=== PATIENT | female | born 1955 | race Caucasian/White ===

== ENCOUNTER 2018-08-19 10:32 | Outpatient (CLI) | payer BC ==
[2018-08-19 11:17] LABS: BASOPHILS % (AUTO) 0.8 % (0.0-2.0); EOSINOPHILS % (AUTO) 0.9 % (0.0-6.0); HEMATOCRIT 41 % (33-45); HEMOGLOBIN 13.4 g/dL (11.5-14.8); LYMPHOCYTES # (AUTO) 1.4 /CMM (0.8-4.8); LYMPHOCYTES % (AUTO) 27.2 % (20.0-44.0); MEAN CORPUSCULAR HGB CONC 33 g/dl (31.0-36.0); MEAN CORPUSCULAR VOLUME 91 fL (82-100); MONOCYTES # (AUTO) 0.3 /CMM (0.1-1.30); MONOCYTES % (AUTO) 5.9 % (2.0-12.0); NEUTROPHILS # (AUTO) 3.4 /CMM (1.8-8.9); NEUTROPHILS % (AUTO) 65.2 % (43.0-81.0); PLATELET COUNT (AUTO) 213 /CMM (150-450); RED BLOOD CELL COUNT(AUTO) 4.44 MIL/uL (4.0-5.2); WHITE BLOOD COUNT (AUTO) 5.2 K/uL (4.3-11.0)
[2018-08-19 11:26] LABS: APPEARANCE,URINE CLEAR (CLEAR); BILIRUBIN,URINE NEGATIVE (NEGATIVE); BLOOD, URINE NEGATIVE Ery/uL (NEGATIVE); COLOR,URINE YELLOW (YELLOW); KETONES,URINE TRACE (NEGATIVE); LEUKOCYTE ESTERASE ,URINE NEGATIVE (NEGATIVE); NITRITE, URINE NEGATIVE (NEGATIVE); PROTEIN,URINE NEGATIVE (NEGATIVE); UGLUCOSE NEGATIVE (NEGATIVE); UROBILINOGEN,URINE 0.2 EU/dL (0.2)
[2018-08-19 11:31] LABS: ALBUMIN 4.3 g/dL (3.4-5.0); BILIRUBIN,TOTAL 0.6 mg/dL (0.2-1.0); CALCIUM, SERUM 9.1 mg/dL (8.5-10.1); CREATININE 0.7 mg/dL (0.6-1.3); POTASSIUM 3.6 mmol/L (3.5-5.1); TOTAL PROTEIN, SERUM 7.7 g/dL (6.4-8.2)
[2018-08-19 11:41] LABS: THYROID STIMULATING HORMONE 0.791 uIU/mL (0.358-3.74)
[2018-08-19 13:45] LABS: BACTERIA,URINE None seen /HPF (None Seen); RBC,URINE NONE SEEN /HPF (0-2); SQUAMOUS EPITHELIAL CELL,UR Few /HPF (None Seen); WBC,URINE 0-2 /HPF (0-3)
[2018-08-20 08:10] LABS: T3, FREE 2.9 pg/mL (2.0-4.4)
[2018-08-20 11:17] LABS: *FOLIC ACID > 20.0 ng/mL (>3.0)
== END 2018-08-19 23:59 | disposition home or self-care (01) ==
LOC: LAB 10:32
PROVIDERS: ATTEND Legal Medicine
DX: Z00.00 Encounter for general adult medical examination without abnormal findings (principal); J32.9 Chronic sinusitis, unspecified; J34.2 Deviated nasal septum; E78.00 Pure hypercholesterolemia, unspecified; I10 Essential (primary) hypertension; E03.9 Hypothyroidism, unspecified; D64.9 Anemia, unspecified; J30.9 Allergic rhinitis, unspecified; E55.9 Vitamin D deficiency, unspecified
CPT/HCPCS: 70486-TC; 80053-TC; 80061-TC; 81000-TC; 82306; 82728-TC; 82785; 83540-TC; 84439-TC; 84443-TC; 84481; 85025-TC

== ENCOUNTER 2018-10-08 08:20 | Emergency (ER) | payer BC, OTHER ==
[~2018-10-08] VITALS: Ht 162.6 cm; Wt 56.7 kg
[2018-10-08 08:25] VITALS: BP 137/76
== END 2018-10-08 09:54 | disposition home or self-care (01) ==
LOC: ER 08:20
DX: S50.12XA Contusion of left forearm, initial encounter (principal); S50.02XA Contusion of left elbow, initial encounter; S09.8XXA Other specified injuries of head, initial encounter; E03.9 Hypothyroidism, unspecified; W01.198A Fall on same level from slipping, tripping and stumbling with subsequent striking against other object, initial encounter; Y93.89 Activity, other specified; Y92.89 Other specified places as the place of occurrence of the external cause; Y99.8 Other external cause status
CPT/HCPCS: 99281; A4606; Z7502

== ENCOUNTER 2019-03-24 08:28 | Emergency (ER) | payer BC, OTHER ==
[~2019-03-24] VITALS: Ht 162.6 cm; Wt 56.7 kg
--- NOTE | 2019-03-24 08:51 | NUR ---
DR LARKIN AT BEDSIDE FOR EVAL.
--- NOTE | 2019-03-24 09:06 | NUR ---
ROAD ENGINEER AT BEDSIDE FOR BLOOD DRAW.
[2019-03-24 09:11] LABS: BASOPHILS # (AUTO) 0.1 /CMM (0.0-0.2); BASOPHILS % (AUTO) 0.7 % (0.0-2.0); EOSINOPHILS % (AUTO) 0.3 % (0.0-6.0); HEMATOCRIT 42 % (33-45); HEMOGLOBIN 14.1 g/dL (11.5-14.8); LYMPHOCYTES # (AUTO) 1.1 /CMM (0.8-4.8); MEAN CORPUSCULAR HGB CONC 34 g/dl (31.0-36.0); MEAN CORPUSCULAR VOLUME 92 fL (82-100); MONOCYTES # (AUTO) 0.5 /CMM (0.1-1.30); MONOCYTES % (AUTO) 5.9 % (2.0-12.0); NEUTROPHILS # (AUTO) 6.5 /CMM (1.8-8.9); NEUTROPHILS % (AUTO) 79.1 % (43.0-81.0); PLATELET COUNT (AUTO) 218 /CMM (150-450); RED BLOOD CELL COUNT(AUTO) 4.54 MIL/uL (4.0-5.2); WHITE BLOOD COUNT (AUTO) 8.2 K/uL (4.3-11.0)
[2019-03-24 09:13] LABS: APPEARANCE,URINE Clear (CLEAR); BILIRUBIN,URINE Negative (NEGATIVE); BLOOD, URINE Negative Ery/uL (NEGATIVE); COLOR,URINE Yellow (YELLOW); KETONES,URINE Negative (NEGATIVE); LEUKOCYTE ESTERASE ,URINE Negative (NEGATIVE); NITRITE, URINE Negative (NEGATIVE); PH,URINE 7.5 (5.0-8.0); PROTEIN,URINE Negative (NEGATIVE); UGLUCOSE Negative (NEGATIVE); UROBILINOGEN,URINE 0.2 EU/dL (0.2)
[2019-03-24 09:18] LABS: CALCIUM, SERUM 9.4 mg/dL (8.5-10.1); CREATININE 0.8 mg/dL (0.6-1.3); POTASSIUM 3.9 mmol/L (3.5-5.1)
[2019-03-24 09:23] LABS: ALBUMIN 4.6 g/dL (3.4-5.0); BILIRUBIN,DIRECT 0.2 mg/dL (0.0-0.2); BILIRUBIN,TOTAL 0.6 mg/dL (0.2-1.0)
--- NOTE | 2019-03-24 09:26 | NUR ---
PT TO RADIOLOGY FOR HEAD CT SCAN VIA [facility].
--- NOTE | 2019-03-24 10:36 | NUR ---
Patient discharged to home in stable condition. Written and verbal after care instructions given. Patient verbalizes understanding of instruction.
[2019-03-24 10:38] VITALS: BP 152/84
== END 2019-03-24 10:38 | disposition home or self-care (01) ==
LOC: ER 08:32
DX: J32.9 Chronic sinusitis, unspecified (principal); R40.4 Transient alteration of awareness
CPT/HCPCS: 36415; 70450-TC; 71045-TC; 80048-TC; 80076-TC; 81000-TC; 85025-TC

== ENCOUNTER 2019-03-26 10:53 | Outpatient (CLI) | payer BC ==
[2019-03-26 11:53] LABS: BASOPHILS % (AUTO) 0.8 % (0.0-2.0); EOSINOPHILS % (AUTO) 0.5 % (0.0-6.0); HEMATOCRIT 40 % (33-45); HEMOGLOBIN 13.2 g/dL (11.5-14.8); LYMPHOCYTES # (AUTO) 1.4 /CMM (0.8-4.8); LYMPHOCYTES % (AUTO) 25.5 % (20.0-44.0); MEAN CORPUSCULAR HGB CONC 33 g/dl (31.0-36.0); MEAN CORPUSCULAR VOLUME 92 fL (82-100); MONOCYTES # (AUTO) 0.3 /CMM (0.1-1.30); MONOCYTES % (AUTO) 5.6 % (2.0-12.0); NEUTROPHILS # (AUTO) 3.8 /CMM (1.8-8.9); NEUTROPHILS % (AUTO) 67.6 % (43.0-81.0); PLATELET COUNT (AUTO) 213 /CMM (150-450); RED BLOOD CELL COUNT(AUTO) 4.33 MIL/uL (4.0-5.2); WHITE BLOOD COUNT (AUTO) 5.6 K/uL (4.3-11.0)
[2019-03-26 12:30] LABS: CREATINE KINASE, TOTAL 95 U/L (26-192)
[2019-03-26 12:38] LABS: C-REACTIVE PROTEIN < 0.2 mg/dL (0.0-0.9)
[2019-03-26 12:42] LABS: ALANINE AMINOTRANSFERASE 20 U/L (12-78); ALBUMIN 4.4 g/dL (3.4-5.0); ALKALINE PHOSPHATASE 50 U/L (46-116); ASPARTATE AMINOTRANSFERASE 19 U/L (15-37); BILIRUBIN,TOTAL 0.6 mg/dL (0.2-1.0); CALCIUM, SERUM 8.5 mg/dL (8.5-10.1); CARBON DIOXIDE 26 mmol/L (21-32); CHLORIDE 104 mmol/L (98-107); CREATININE 0.8 mg/dL (0.6-1.3); GLUCOSE 103 mg/dL (74-106); POTASSIUM 3.6 mmol/L (3.5-5.1); SODIUM SERUM 139 mmol/L (136-145); TOTAL PROTEIN, SERUM 7.7 g/dL (6.4-8.2); UREA NITROGEN, BLOOD 10 mg/dL (7-18)
[2019-03-27 17:09] LABS: *ANA ANTI-CENTROMERE B AB <0.2 AI (0.0-0.9); *ANA ANTI-DNA(DS) AB, QN <1 IU/mL (0-9); *ANA ANTI-JO-1 <0.2 AI (0.0-0.9); *ANA ANTICHROMATIN ANTIBODY <0.2 AI (0.0-0.9); *ANA RNP ANTIBODIES <0.2 AI (0.0-0.9); *ANA SJOGREN'S ANTI-SS-A <0.2 AI (0.0-0.9); *ANA SJOGREN'S ANTI-SS-B <0.2 AI (0.0-0.9); *ANAANTI-SCLERODERMA-70 AB <0.2 AI (0.0-0.9); *ANASMITH AB <0.2 AI (0.0-0.9)
[2019-03-28 18:06] LABS: CCP IgG/IgA AB <1 units (0-19)
[2019-03-29 10:07] LABS: ALDOLASE 3.6 U/L (3.3-10.3)
== END 2019-03-26 23:59 | disposition home or self-care (01) ==
LOC: LAB 10:53
PROVIDERS: ATTEND Legal Medicine
DX: R53.1 Weakness (principal); R51 Headache
CPT/HCPCS: 36415; 80053-TC; 82085; 82550-TC; 85025-TC; 85652-TC; 86140-TC; 86200; 86225; 86235; 86431-TC

== ENCOUNTER 2019-03-31 09:14 | Outpatient (CLI) | payer BC ==
[2019-03-31] MEDS ORDERED: GADOTERIDOL 279.3 MG/ML VIAL IV ONE (09:15)
== END 2019-03-31 23:59 | disposition home or self-care (01) ==
LOC: MRI 09:14
PROVIDERS: ATTEND Legal Medicine
DX: M50.221 Other cervical disc displacement at C4-C5 level (principal); M48.02 Spinal stenosis, cervical region; J34.1 Cyst and mucocele of nose and nasal sinus; J32.9 Chronic sinusitis, unspecified; H69.90 Unspecified Eustachian tube disorder, unspecified ear
CPT/HCPCS: 70542; 70553; A9579; 72156-TC

== ENCOUNTER 2019-08-20 07:44 | Outpatient (CLI) | payer BC | END 2019-08-20 23:59 | disposition home or self-care (01) | LOC: LAB 07:44 | DX: M26.12 Other jaw asymmetry (principal) | CPT/HCPCS: 36415; 85652-TC ==

== ENCOUNTER 2019-08-26 06:50 | Emergency (ER) | payer BC, OTHER ==
[~2019-08-26] VITALS: Ht 162.6 cm; Wt 56.7 kg
--- NOTE | 2019-08-26 07:15 | NUR ---
C/O SINUS PRESSURE, COUGH, CONGESTION, RUNNY NOSE, HEADACHE, SOB, SORETHROAT AND R EARACHE. ON ALBUTEROL AND AUGMENTIN. PATIENT A/OX4, BREATHING EVEN AND UNLABORED, NO SOB NOTED. NEEDS ATTENDED.
[2019-08-26] MEDS ORDERED: KETOROLAC TROMETHAMINE INJ 30 MG/ML VIAL ONE (07:29)
[2019-08-26] MEDS ORDERED: diphenhydrAMINE HCL 50 MG/ML VIAL ONE (07:29)
[2019-08-26] MEDS ORDERED: DEXAMETHASONE SOD PHOSPHATE 10 MG/ML VIAL ONE (07:29)
[2019-08-26] MEDS ORDERED: METOCLOPRAMIDE HCL 10 MG/2 ML VIAL ONE (07:29)
[2019-08-26] MEDS ORDERED: DEXAMETHASONE SOD PHOSPHATE 10 MG/ML VIAL IV ONE (07:30)
[2019-08-26] MEDS ORDERED: IV NS 0.9% 1,000 ML BAG IV ONE (07:30)
[2019-08-26] MEDS ORDERED: diphenhydrAMINE HCL 50 MG/ML VIAL IV ONE (07:30)
[2019-08-26] MEDS ORDERED: KETOROLAC TROMETHAMINE INJ 30 MG/ML VIAL IV ONE (07:30)
[2019-08-26] MEDS ORDERED: METOCLOPRAMIDE HCL 10 MG/2 ML VIAL IV ONE (07:30)
[2019-08-26 07:37] LABS: BASOPHILS % (AUTO) 0.8 % (0.0-2.0); EOSINOPHILS % (AUTO) 1.4 % (0.0-6.0); HEMATOCRIT 39 % (33-45); HEMOGLOBIN 13.3 g/dL (11.5-14.8); LYMPHOCYTES # (AUTO) 0.5 /CMM (0.8-4.8); LYMPHOCYTES % (AUTO) 10.6 % (20.0-44.0); MEAN CORPUSCULAR HGB CONC 34 g/dl (31.0-36.0); MEAN CORPUSCULAR VOLUME 91 fL (82-100); MONOCYTES # (AUTO) 0.6 /CMM (0.1-1.30); MONOCYTES % (AUTO) 12.1 % (2.0-12.0); NEUTROPHILS # (AUTO) 3.5 /CMM (1.8-8.9); NEUTROPHILS % (AUTO) 75.1 % (43.0-81.0); PLATELET COUNT (AUTO) 158 /CMM (150-450); RED BLOOD CELL COUNT(AUTO) 4.34 MIL/uL (4.0-5.2); WHITE BLOOD COUNT (AUTO) 4.6 K/uL (4.3-11.0)
[2019-08-26 08:04] LABS: CALCIUM, SERUM 8.7 mg/dL (8.5-10.1); CREATININE 0.8 mg/dL (0.6-1.3); POTASSIUM 3.7 mmol/L (3.5-5.1)
--- NOTE | 2019-08-26 09:18 | NUR ---
Patient stated she feels better. Ambulatory with steady gait. IV removed. Catheter intact and site benign. Pressure and 4x4 applied to site. No bleeding noted. Patient discharged to home in stable condition. Written and verbal after care instructions given. Patient verbalizes understanding of instruction.
[2019-08-26 09:19] VITALS: BP 136/90
== END 2019-08-26 09:19 | disposition home or self-care (01) ==
LOC: ER 06:50
DX: R51 Headache (principal); R05 Cough; E03.9 Hypothyroidism, unspecified
CPT/HCPCS: 36415; 80048; 85025; 87804 ×2; 96374; 96375; 99283; J1100; J1200; J1885; J2765; J7030

== ENCOUNTER 2019-09-01 07:37 | Outpatient (CLI) | payer BC ==
[2019-09-01 08:56] LABS: BASOPHILS % (AUTO) 0.7 % (0.0-2.0); EOSINOPHILS % (AUTO) 1.4 % (0.0-6.0); HEMATOCRIT 40 % (33-45); HEMOGLOBIN 13.5 g/dL (11.5-14.8); LYMPHOCYTES # (AUTO) 1.9 /CMM (0.8-4.8); LYMPHOCYTES % (AUTO) 27.6 % (20.0-44.0); MEAN CORPUSCULAR HGB CONC 33 g/dl (31.0-36.0); MEAN CORPUSCULAR VOLUME 91 fL (82-100); MONOCYTES # (AUTO) 0.5 /CMM (0.1-1.30); MONOCYTES % (AUTO) 7.8 % (2.0-12.0); NEUTROPHILS # (AUTO) 4.3 /CMM (1.8-8.9); NEUTROPHILS % (AUTO) 62.5 % (43.0-81.0); PLATELET COUNT (AUTO) 257 /CMM (150-450); RED BLOOD CELL COUNT(AUTO) 4.45 MIL/uL (4.0-5.2); WHITE BLOOD COUNT (AUTO) 6.8 K/uL (4.3-11.0)
[2019-09-01 09:19] LABS: C-REACTIVE PROTEIN < 0.2 mg/dL (0.0-0.9)
[2019-09-01 09:23] LABS: ALANINE AMINOTRANSFERASE 32 U/L (12-78); ALBUMIN 4.1 g/dL (3.4-5.0); ALKALINE PHOSPHATASE 55 U/L (46-116); ASPARTATE AMINOTRANSFERASE 23 U/L (15-37); BILIRUBIN,TOTAL 0.5 mg/dL (0.2-1.0); CALCIUM, SERUM 8.9 mg/dL (8.5-10.1); CARBON DIOXIDE 27 mmol/L (21-32); CHLORIDE 104 mmol/L (98-107); CREATININE 0.9 mg/dL (0.6-1.3); GLUCOSE 101 mg/dL (74-106); POTASSIUM 3.5 mmol/L (3.5-5.1); SODIUM SERUM 142 mmol/L (136-145); TOTAL PROTEIN, SERUM 7.6 g/dL (6.4-8.2); UREA NITROGEN, BLOOD 12 mg/dL (7-18)
[2019-09-04 15:06] LABS: IMMUNOGLOBULIN E,TOTAL <2 IU/mL (6-495)
== END 2019-09-01 23:59 | disposition home or self-care (01) ==
LOC: LAB 07:37
PROVIDERS: ATTEND Legal Medicine
DX: D64.9 Anemia, unspecified (principal)
CPT/HCPCS: 80053-TC; 85025-TC; 85652-TC; 86140-TC

== ENCOUNTER 2019-09-03 09:18 | Outpatient (CLI) | payer BC, OTHER ==
[2019-09-03] MEDS ORDERED: IV NS 0.9% 250 ML IV ONE (10:19)
[2019-09-03] MEDS ORDERED: IOHEXOL-300 100 ML VIAL IV ONE (10:19)
[2019-09-03] MEDS ORDERED: CT SWABBABLE VALVE TRANS SET 1 EA INFUS.SET MC ONE (10:19)
== END 2019-09-03 23:59 | disposition home or self-care (01) ==
LOC: CT 09:18
PROVIDERS: ATTEND Legal Medicine
DX: J32.9 Chronic sinusitis, unspecified (principal); J33.8 Other polyp of sinus; J32.2 Chronic ethmoidal sinusitis; R91.1 Solitary pulmonary nodule; J92.9 Pleural plaque without asbestos; J94.8 Other specified pleural conditions; I70.0 Atherosclerosis of aorta; I25.10 Atherosclerotic heart disease of native coronary artery without angina pectoris; R16.0 Hepatomegaly, not elsewhere classified; K76.89 Other specified diseases of liver; I65.23 Occlusion and stenosis of bilateral carotid arteries
CPT/HCPCS: 70488; 70547; 71270; J7050; Q9967

== ENCOUNTER 2020-06-13 08:49 | Emergency (ER) | payer BC, OTHER ==
[~2020-06-13] VITALS: Ht 162.6 cm; Wt 59.4 kg
[2020-06-13 09:01] VITALS: BP 171/89
--- NOTE | 2020-06-13 10:13 | NUR ---
Patient discharged to home in stable condition. Written and verbal after care instructions given. Patient verbalizes understanding of instruction.
== END 2020-06-13 10:13 | disposition home or self-care (01) ==
LOC: ER 08:52
DX: R05 Cough (principal); R53.83 Other fatigue; Z20.828 Contact with and (suspected) exposure to other viral communicable diseases; E03.9 Hypothyroidism, unspecified
CPT/HCPCS: 71045; 99284; C9803; U0003

== ENCOUNTER 2020-09-20 09:36 | Outpatient (CLI) | payer BC, OTHER ==
[2020-09-20 11:54] LABS: BASOPHILS # (AUTO) 0.1 /CMM (0.0-0.2); BASOPHILS % (AUTO) 2.3 % (0.0-2.0); HEMATOCRIT 40 % (33-45); HEMOGLOBIN 13.3 g/dL (11.5-14.8); LYMPHOCYTES # (AUTO) 1.1 /CMM (0.8-4.8); LYMPHOCYTES % (AUTO) 20.2 % (20.0-44.0); MEAN CORPUSCULAR HGB CONC 33 g/dl (31.0-36.0); MEAN CORPUSCULAR VOLUME 91 fL (82-100); MONOCYTES # (AUTO) 0.2 /CMM (0.1-1.30); MONOCYTES % (AUTO) 3.8 % (2.0-12.0); NEUTROPHILS # (AUTO) 3.9 /CMM (1.8-8.9); NEUTROPHILS % (AUTO) 72.7 % (43.0-81.0); PLATELET COUNT (AUTO) 185 /CMM (150-450); RED BLOOD CELL COUNT(AUTO) 4.42 MIL/uL (4.0-5.2); WHITE BLOOD COUNT (AUTO) 5.4 K/uL (4.3-11.0)
[2020-09-20 12:21] LABS: THYROID STIMULATING HORMONE 0.505 uIU/mL (0.358-3.74); URIC ACID 4.6 mg/dL (2.6-7.2)
[2020-09-20 12:33] LABS: ALBUMIN 4.4 g/dL (3.4-5.0); BILIRUBIN,TOTAL 0.6 mg/dL (0.2-1.0); CREATININE 0.7 mg/dL (0.6-1.3); POTASSIUM 3.4 mmol/L (3.5-5.1); TOTAL PROTEIN, SERUM 7.6 g/dL (6.4-8.2)
[2020-09-20 12:50] LABS: BILIRUBIN,URINE NEGATIVE (NEGATIVE); COLOR,URINE YELLOW (YELLOW); LEUKOCYTE ESTERASE ,URINE NEGATIVE (NEGATIVE); NITRITE, URINE NEGATIVE (NEGATIVE); PH,URINE 6.5 (5.0-8.0); PROTEIN,URINE NEGATIVE (NEGATIVE); UGLUCOSE NEGATIVE (NEGATIVE); UROBILINOGEN,URINE 0.2 EU/dL (0.2)
== END 2020-09-20 23:59 | disposition home or self-care (01) ==
LOC: LAB 09:36
PROVIDERS: ATTEND Legal Medicine
DX: I10 Essential (primary) hypertension (principal); E03.9 Hypothyroidism, unspecified; E78.00 Pure hypercholesterolemia, unspecified; E55.9 Vitamin D deficiency, unspecified; Z00.00 Encounter for general adult medical examination without abnormal findings
CPT/HCPCS: 36415; 80053-TC; 80061-TC; 82306; 82607-TC; 82728-TC; 83540-TC; 84443-TC; 84550-TC; 85025-TC

== ENCOUNTER 2020-09-21 08:31 | Outpatient (CLI) | payer BC, OTHER | END 2020-09-21 23:59 | disposition home or self-care (01) | LOC: MRI 08:31 | PROVIDERS: ATTEND Legal Medicine | DX: M50.121 Cervical disc disorder at C4-C5 level with radiculopathy (principal); M48.02 Spinal stenosis, cervical region; M25.78 Osteophyte, vertebrae | CPT/HCPCS: 72141-TC ==

== ENCOUNTER 2020-09-25 10:58 | Outpatient (CLI) | payer BC, OTHER | END 2020-09-25 23:59 | disposition home or self-care (01) | LOC: RAD 10:58 | PROVIDERS: ATTEND Internal Medicine Pulmonary Disease | DX: J32.9 Chronic sinusitis, unspecified (principal); R06.02 Shortness of breath | CPT/HCPCS: 70220-TC ==

== ENCOUNTER → 2021-09-28 | Outpatient (CLI) | payer BC, OTHER ==
[2021-09-28 09:33] LABS: BILIRUBIN,URINE NEGATIVE (NEGATIVE); COLOR,URINE YELLOW (YELLOW); LEUKOCYTE ESTERASE ,URINE NEGATIVE (NEGATIVE); NITRITE, URINE NEGATIVE (NEGATIVE); PH,URINE 5.5 (5.0-8.0); PROTEIN,URINE NEGATIVE (NEGATIVE); UGLUCOSE NEGATIVE (NEGATIVE); UROBILINOGEN,URINE 0.2 EU/dL (0.2)
[2021-09-28 09:38] LABS: BASOPHILS % (AUTO) 0.6 % (0.0-2.0); EOSINOPHILS % (AUTO) 0.4 % (0.0-6.0); HEMATOCRIT 40 % (33-45); HEMOGLOBIN 13.2 g/dL (11.5-14.8); LYMPHOCYTES # (AUTO) 1.3 K/uL (0.8-4.8); MEAN CORPUSCULAR HGB CONC 33 g/dl (31.0-36.0); MEAN CORPUSCULAR VOLUME 89 fL (82-100); MONOCYTES # (AUTO) 0.3 K/uL (0.1-1.30); MONOCYTES % (AUTO) 5.2 % (2.0-12.0); NEUTROPHILS # (AUTO) 3.8 K/uL (1.8-8.9); NEUTROPHILS % (AUTO) 69.8 % (43.0-81.0); PLATELET COUNT (AUTO) 202 K/uL (150-450); RED BLOOD CELL COUNT(AUTO) 4.44 MIL/uL (4.0-5.2); WHITE BLOOD COUNT (AUTO) 5.5 K/uL (4.3-11.0)
[2021-09-28 09:54] LABS: BACTERIA,URINE Few /HPF (None Seen); RBC,URINE 0-2 /HPF (0-2); SQUAMOUS EPITHELIAL CELL,UR Few /HPF (None Seen); WBC,URINE 0-2 /HPF (0-3)
[2021-09-28 10:28] LABS: THYROID STIMULATING HORMONE 0.383 uIU/mL (0.358-3.74); URIC ACID 4.5 mg/dL (2.6-7.2)
[2021-09-28 10:29] LABS: C-REACTIVE PROTEIN 0.2 mg/dL (0.0-0.9)
[2021-09-28 10:37] LABS: ALBUMIN 4.2 g/dL (3.4-5.0); BILIRUBIN,TOTAL 0.8 mg/dL (0.2-1.0); CALCIUM, SERUM 9.2 mg/dL (8.5-10.1); CREATININE 0.7 mg/dL (0.6-1.3); POTASSIUM 3.8 mmol/L (3.5-5.1); TOTAL PROTEIN, SERUM 7.5 g/dL (6.4-8.2)
== END | disposition home or self-care (01) ==
LOC: LAB 08:38
PROVIDERS: ATTEND Legal Medicine
DX: E11.9 Type 2 diabetes mellitus without complications (principal); I25.10 Atherosclerotic heart disease of native coronary artery without angina pectoris; E78.5 Hyperlipidemia, unspecified; E03.9 Hypothyroidism, unspecified; D64.9 Anemia, unspecified; E55.9 Vitamin D deficiency, unspecified; R53.1 Weakness; Z00.00 Encounter for general adult medical examination without abnormal findings
CPT/HCPCS: 36415; 80053-TC; 80061-TC; 81001; 82306; 82607-TC; 82728-TC; 83540-TC; 84439-TC; 84443-TC; 84550-TC; 85025-TC; 85652-TC; 86140-TC

== ENCOUNTER 2021-12-24 09:52 | Outpatient (CLI) | payer BC, OTHER | END 2021-12-24 23:59 | disposition home or self-care (01) | LOC: CT 09:52 | PROVIDERS: ATTEND Internal Medicine Pulmonary Disease | DX: R91.8 Other nonspecific abnormal finding of lung field (principal); I31.3 Pericardial effusion (noninflammatory); I25.10 Atherosclerotic heart disease of native coronary artery without angina pectoris; J92.9 Pleural plaque without asbestos; K76.89 Other specified diseases of liver | CPT/HCPCS: 71250-TC ==

== ENCOUNTER → 2022-03-26 | Outpatient (CLI) | payer BC, OTHER | END | disposition home or self-care (01) | LOC: LAB 11:05 | PROVIDERS: ATTEND Internal Medicine Pulmonary Disease | DX: R91.1 Solitary pulmonary nodule (principal) ==

== ENCOUNTER 2022-04-15 10:16 | Outpatient (CLI) | payer BC, OTHER | END 2022-04-15 23:59 | disposition home or self-care (01) | LOC: CT 10:16 | PROVIDERS: ATTEND Internal Medicine Pulmonary Disease | DX: R91.1 Solitary pulmonary nodule (principal) | CPT/HCPCS: 71250-TC ==